=== PATIENT | female | born 1940 | race Caucasian/White ===

== ENCOUNTER 2022-06-11 20:26 | Emergency (ER) | payer MEDICARE, SELFPAY ==
--- NOTE | ~2022-06-11 | CT_ITS ---
EXAMINATION: CT head/brain wo con, CT cervical spine wo con INDICATION INFORMATION: Reason for Exam fall, poor historian COMPARISON: None TECHNIQUE: Separate noncontrast CT examinations of the head and cervical spine were performed. Coronal and sagittal images were created for each examination at the technologist workstation. This CT examination was performed using dose optimization techniques as appropriate, variously including the following: *Automated exposure control *Adjustment of mA and/or kV according to patient size (this includes techniques or standardized protocols for targeted exams where dose is matched to indication/reason for exam; i.e. extremities or head) *Use of iterative reconstruction technique DLP: 1073 mGy-cm FINDINGS: Motion degraded examination, particularly of the cervical spine. Head: No acute osseous or soft tissue abnormality. The mastoid air cells and visualized portions of the paranasal sinuses are well aerated. There is no evidence of acute intracranial hemorrhage or territorial infarction. No abnormal mass effect or midline shift is seen. Kruse to white matter differentiation is well preserved. No extra-axial fluid collections are identified. No hydrocephalus. Proportional prominence of the ventricles and sulcal spaces is consistent with mild volume loss. Patchy periventricular and deep white matter hypoattenuation is consistent with mild small vessel ischemic changes. Cervical spine: There is no evidence of acute cervical spine fracture. Cervical vertebral bodies remain normal in height. Multilevel cervical spondylosis is suboptimally evaluated. No pre- or paravertebral soft tissue abnormality is identified. Age-indeterminate mild to moderate height loss of the T5 vertebral body Pulmonary emphysema.. The thyroid gland is unremarkable. CT/CT cervical spine wo con IMPRESSION: Motion degraded examination, particularly of the cervical spine which is suboptimally evaluated Within the limitations of motion, no acute intracranial abnormality or acute fracture or traumatic malalignment of the cervical spine is identified. Age-indeterminate mild to moderate height loss of the T5 vertebral body
--- NOTE | ~2022-06-11 | CT_ITS ---
EXAMINATION: CT CHEST, ABDOMEN AND PELVIS WITHOUT CONTRAST CLINICAL INFORMATION: Hypoxic with left shoulder pain. Question left hip fracture COMPARISON: None TECHNIQUE: Multidetector volumetric imaging was performed from the thoracic inlet through the pubic symphysis. Sagittal and coronal reformatted images were obtained on the technologist's workstation. Axial MIP volume rendering provided. This CT examination was performed using dose optimization techniques as appropriate, variously including the following: *Automated exposure control *Adjustment of mA and/or kV according to patient size (this includes techniques or standardized protocols for targeted exams where dose is matched to indication/reason for exam; i.e. extremities or head) *Use of iterative reconstruction technique DLP: 592 mGy-cm FINDINGS: CHEST: Lungs: Small sub-6 mm nodular densities in the medial anterior right upper lobe on series 7 image 186 and peripheral left lower lobe image 459. The latter may represent focal area of scarring or atelectasis or possibly an intrapulmonary lymph node given the slightly triangular morphology. Tiny calcified granuloma in the right upper lobe. Moderate centrilobular emphysema. Mild bibasilar atelectasis and small fat-containing right-sided Bochdalek hernia. Mild biapical pleural parenchymal thickening/scarring. Central airways are clear. Minimal diffuse bronchial wall thickening. Mediastinum: No cardiomegaly or pericardial effusion. Three-vessel coronary calcifications. Normal caliber thoracic aorta with moderate vascular calcifications. Nondilated central pulmonary trunk. No mediastinal hematoma. No mediastinal or hilar lymphadenopathy. Pericardium/Pleura: No pleural effusion. No pneumothorax. Chest Wall/Axilla: Unremarkable. ABDOMEN/PELVIS: Liver, Gallbladder, Biliary Tree: The liver is normal in size, shape, and attenuation. No focal hepatic lesion or biliary ductal dilatation is present. Status post cholecystectomy. Surgical clips in the gallbladder fossa. Extra hepatic bile duct measures 1 cm, and upper limits of normal postcholecystectomy. Pancreas: Unremarkable. Spleen: Unremarkable. Adrenal Glands: Unremarkable. Kidneys and Ureters: 2 cm fluid density simple right midpole renal cyst. No other renal lesion. No radiodense renal calculi. No hydronephrosis. No perinephric stranding or collections. Bladder: Unremarkable. Gastrointestinal Tract: Colonic diverticulosis. No evidence of acute diverticulitis. Normal appendix. No ascites or free air. Abdominal Wall: No abdominal wall hernia is demonstrated. There is some herniation of a knuckle of a bowel loop likely small bowel through the right sciatic notch along side just anterior to and displacing the proximal right sciatic nerve on series 8-46. Lymphovascular Structures: Lymph nodes: No lymphadenopathy. Vascular: Approximately 4 cm juxtarenal abdominal aortic aneurysm. Extensive vascular calcifications. Pelvic Viscera: Gynecologic structures grossly unremarkable-limited assessment. OSSEOUS STRUCTURES: Marked osteopenia. Subtle linear lucency through the posterior base of the left greater trochanter extending to the posterior margin of the intertrochanteric ridge on coronal image 13 suspicious for nondisplaced fracture. Moderate bilateral hip joint osteoarthritis. No pelvic fracture seen. Compression deformities of L1, L2, L4, and to a lesser degree L5 with multilevel degenerative disc disease. Compression deformities of T5, T6, T7, T8, T9, T10, T11, T12, chronic in appearance. No acute fracture line. No acute rib fracture. Mildly displaced/impacted humeral neck fracture with lipohemarthrosis at the left shoulder. Anterior inferior subluxation left humeral head relative to the glenoid. No wallace dislocation. CT/CT abdomen pelvis wo con IMPRESSION: 1. Mildly impacted left humeral neck fracture with lipohemarthrosis at the left shoulder and anterior inferior subluxation of the humeral head relative to the glenoid. No wallace dislocation. 2. Findings highly suspicious for a nondisplaced fracture through the base of the left greater trochanter extending toward the posterior intertrochanteric ridge. 3. No airspace consolidation, pleural effusion, or pneumothorax. 4. Moderate centrilobular emphysema. 5. A few small sub-6 mm pulmonary nodules, as above. Consider optional low-dose chest CT follow-up in 12 months time per [employer] society guidelines 2017. 6. No acute intra-abdominal process. 7. 4 cm juxtarenal abdominal aortic aneurysm. 8. Herniation of the short segment of a small bowel loop through the right sciatic notch exerting mild mass effect on the proximal right sciatic nerve. 9. Multiple additional chronic findings, as above.
[2022-06-11 20:34] VITALS: BP 177/87; BP 178/88; PULSE 77; PULSE 84; RESP 20; TEMP 36.9; O2SAT 89; O2SAT 91; BMI 13.4
[2022-06-11 20:50] VITALS: BP 177/87; PULSE 80; RESP 20; TEMP 36.9; O2SAT 90
--- NOTE | 2022-06-11 21:17 | ECG_ITS ---
Test Reason : DIFFICULTY BREATHING Blood Pressure : / mmHG Vent. Rate : 084 BPM Atrial Rate : 084 BPM P-R Int : 136 ms QRS Dur : 064 ms QT Int : 366 ms P-R-T Axes : 076 013 064 degrees QTc Int : 432 ms Normal sinus rhythm Low voltage QRS Septal infarct , age undetermined Abnormal ECG No previous ECGs available Referred By: Danae Link Electronically Signed By:CURTIS ADAMS
--- NOTE | 2022-06-11 21:28 | ED_ITS ---
HPI - Fall General Chief Complaint: Fall Stated Complaint: FALL Time Seen by Provider: 06/11/22 20:58 Source: patient and EMS Mode of arrival: EMS Limitations: no limitations History of Present Illness HPI Narrative: Patient comes to the emergency room after sustaining a fall. Patient states that she does not remember how it happened, believes that she tripped. Per EMS, it seems that she was trying to move around with her walker, tripped over some wires. States that she was on the floor for about 4 hours, trying to get the attention of her neighbors by hitting the floor with her cane. When EMS arrived, patient was found to be hypoxic in the low 80s, with no complaints of shortness of breath. Patient states that she has not been seen by a physician in over 20 years, is unaware of any medical problems, takes no medications, daily smoker. On arrival to the ED, patient was put on 2 L, oxygen saturation 90%, patient mostly complaining of left shoulder pain and left hip pain, no chest pain or shortness of breath. Also, patient states that she has not been immunized for COVID. Related Data Allergies Allergy/AdvReac Type Severity Reaction Status Date / Time No Known Allergies Allergy Verified 06/11/22 21:09 Review of Systems Review of Systems: Constitutional : No Weight loss, No Fever, No Chills, No Night Sweats, No Fatigue, No Malaise ENT/Mouth : No Hearing loss, No Ear Pain, No Nasal Congestion, No Sinus Pain, No Hoarseness, No sore throat, No Rhinorrhea, No Swallowing Difficulty Eyes: No Eye Pain, No Swelling, No Redness, No Foreign Body, No Discharge, No Vision Changes Cardiovascular : No Chest Pain, No SOB, No Dyspnea on Exertion, No Orthopnea, No Edema, No Palpitations Respiratory : No Cough, No Sputum, No Wheezing, No Smoke Exposure, No Dyspnea Gastrointestinal : No Nausea, No Vomiting, No Diarrhea, No Constipation, No abdominal Pain, No Hematochezia, No Melena Genitourinary : no irregular bleeding, No Dysuria, No Urinary Frequency, No Hematuria, No Urinary Incontinence, No Urgency, No Flank Pain, No Urinary Flow Changes, No Hesitancy Musculoskeletal : Complaining of left shoulder pain and left hip pain Skin : No Skin Lesions, No rash Neuro : No Weakness, No Numbness, No Paresthesias, No Loss of Consciousness, No Dizziness, No Headache Psych : No Anxiety/Panic, No Depression, No SI/HI/AH/VH, No Social Issues, Heme/Lymph: No Bruising, No Bleeding,No Lymphadenopathy Endocrine : No Polyuria, No Polydipsia, No Temperature Intolerance [facility] Social History Social History Alcohol intake: never Patient Tobacco Use Status: Current everyday Tobacco user Use of substances other than those prescribed or required for medical reasons: No Advance Directives: No Advance Directives Information Provided: No Physical Exam Vital Signs: Vital Signs: Last Vital Signs Temp 98.4 F 06/11/22 20:50 Pulse 86 06/11/22 23:12 Resp 21 H 06/11/22 23:12 BP 129/81 06/11/22 23:12 Pulse Ox 91 L 06/11/22 23:12 O2 Del Method 06/11/22 23:12 O2 Flow Rate 2 06/11/22 23:12 Oxygen Flow Rate 2 06/11/22 20:34 BMI result Body Mass Index 13.4 Const: Other: Appearance: Alert. Oriented X3. No acute distress. Patient is cachectic Eyes: Pupils equal, round and reactive to light. ENT: Pharynx normal. Neck: Normal inspection. Neck supple. No lymph nodes noted. No crepitus CVS: Normal heart rate and rhythm. Pulses normal. Normal S1 and S2 Respiratory: No respiratory distress. Breath sounds normal. No Wheezing. No rales Abdomen: Soft and nontender. No rigidity. No distention. Skin: Skin warm and dry. Normal skin color. Ecchymosis in right arm Extremities: No lower extremity edema. No patient has significant swelling to the left shoulder, unable to move it due to pain. Patient holding her left hip flexed, unable to move it due to pain. Neuro: Oriented X 3. No motor deficit. No sensory deficit. Moving all extremities. No slurred speech. CN 2 through 12 grossly intact Psych: calm, cooperative, normal affect Course Course Course Narrative: Patient is currently on 2 L of nasal cannula. It is unclear how long patient has been saturating in the low 80s. Patient has not been seen by a medical p ivan in over 20 years. All of patient's labs and imaging are pending. I discussed with the patient that we will admit her. Patient agrees with plan. I discussed with NEAL Noguerause the CT scan findings, patient has a a mildly impacted left humeral neck fracture and also nondisplaced fracture through the base of the left greater trochanter. Recommendations per Orthopedics, no surgery Urinalysis is pending. Patient needs case management and physical therapy evaluation. Also, patient will need respiratory therapy evaluation. At this time, I discussed with our hospitalist that patient is hypoxic, no shortness of breath. Patient has been hypoxic likely for a prolonged period of time. Patient will need oxygen upon discharge. This time, there are no acute findings that need immediate treatment Physician observation started that 23:42 MDM - Fall Lab Data Result diagrams: 06/11/22 22:40 06/11/22 22:26 Labs: Lab Results 06/11/22 06/11/22 06/11/22 Range/Units 22:26 22:40 22:40 WBC 10.6 (4.8-10.8) X10*3/uL RBC 4.32 (4.20-5.50) X10*6/uL Hgb 13.0 (12.0-16.0) g/dl Hct 39.8 (37.0-47.0) % MCV 92.1 (80.0-98.0) fL MCH 30.1 (27.0-33.0) pg MCHC 32.7 (31.0-35.0) g/dl RDW 12.8 (11.0-16.0) % Plt Count 139 L (160-400) X10*3/uL MPV 10.8 (9.4-12.3) fL Immature Gran % (Auto) 0.3 (0.0-0.4) % Neut % (Auto) 87.6 H (45-73) % Lymph % (Auto) 5.2 L (20-40) % [place] % (Auto) 6.2 (2-11) % Eos % (Auto) 0.2 (0-4) % Baso % (Auto) 0.5 (0-2) % Lymph # (Auto) 0.6 L (1.2-4.9) X10*3/uL [place] # (Auto) 0.7 (0.1-1.2) X10*3/uL Eos # (Auto) 0.0 (0.0-0.4) X10*3/uL Baso # (Auto) 0.1 (0.0-0.2) X10*3/uL Abs Immat Gran (auto) 0.03 (0.00-0.03) X10*3/uL Absolute Neuts (auto) 9.3 H (2.0-8.3) x10*3/uL Absolute Nucleated RBC 0.000 (0.0-0.012) X10*3/uL Nucleated RBC % (auto) 0.0 (0.0-0.2) /100WBC PT 12.5 (10.0-13.1) SEC INR 1.1 (0.9-1.1) VBG pH (7.32-7.43) VBG pCO2 mmHg VBG pO2 mmHg VBG HCO3 (22-26) mmol/L VBG O2 Saturation % VBG Base Excess mmol/L Sodium 145 (135-145) mmol/L Potassium 5.0 (3.3-5.1) mmol/L Chloride 105 (96-108) mmol/L Carbon Dioxide 30 H (22-29) mmol/L Anion Gap 15 (12-20) BUN 14 (9-16) mg/dL Creatinine 0.71 (0.5-1.4) mg/dL Estim Creat Clear Calc 37.7 Estimated GFR > 60 Random Glucose 114 (60-115) mg/dL Lactic Acid (0.5-2.0) mmol/L Calcium 9.4 (8.4-10.2) mg/dL Magnesium (1.6-2.6) mg/dL Total Bilirubin 0.5 (0.0-1.0) mg/dL Direct Bilirubin 0.2 (0.0-0.5) mg/dL AST 15 (5-31) U/L ALT 7 (0-31) U/L Alkaline Phosphatase 76 (39-117) U/L Total Creatine Kinase 72 (26-140) U/L Troponin I High Sens (<3.5-17.0) ng/L B-Natriuretic Peptide (<100) pg/mL Total Protein 6.9 (6.5-8.0) g/dL Albumin 4.0 (3.5-5.0) g/dL TSH (0.32-4.0) uIU/mL Ethyl Alcohol mg/dL COVID-19 ([facility]) (Negative) COVID-19 Clin Com 06/11/22 06/11/22 06/11/22 Range/Units 22:40 22:40 22:40 WBC (4.8-10.8) X10*3/uL RBC (4.20-5.50) X10*6/uL Hgb (12.0-16.0) g/dl Hct (37.0-47.0) % MCV (80.0-98.0) fL MCH (27.0-33.0) pg MCHC (31.0-35.0) g/dl RDW (11.0-16.0) % Plt Count (160-400) X10*3/uL MPV (9.4-12.3) fL Immature Gran % (Auto) (0.0-0.4) % Neut % (Auto) (45-73) % Lymph % (Auto) (20-40) % [place] % (Auto) (2-11) % Eos % (Auto) (0-4) % Baso % (Auto) (0-2) % Lymph # (Auto) (1.2-4.9) X10*3/uL [place] # (Auto) (0.1-1.2) X10*3/uL Eos # (Auto) (0.0-0.4) X10*3/uL Baso # (Auto) (0.0-0.2) X10*3/uL Abs Immat Gran (auto) (0.00-0.03) X10*3/uL Absolute Neuts (auto) (2.0-8.3) x10*3/uL Absolute Nucleated RBC (0.0-0.012) X10*3/uL Nucleated RBC % (auto) (0.0-0.2) /100WBC PT (10.0-13.1) SEC INR (0.9-1.1) VBG pH (7.32-7.43) VBG pCO2 mmHg VBG pO2 mmHg VBG HCO3 (22-26) mmol/L VBG O2 Saturation % VBG Base Excess mmol/L Sodium (135-145) mmol/L Potassium (3.3-5.1) mmol/L Chloride (96-108) mmol/L Carbon Dioxide (22-29) mmol/L Anion Gap (12-20) BUN (9-16) mg/dL Creatinine (0.5-1.4) mg/dL Estim Creat Clear Calc Estimated GFR Random Glucose (60-115) mg/dL Lactic Acid 1.8 (0.5-2.0) mmol/L Calcium (8.4-10.2) mg/dL Magnesium (1.6-2.6) mg/dL Total Bilirubin (0.0-1.0) mg/dL Direct Bilirubin (0.0-0.5) mg/dL AST (5-31) U/L ALT (0-31) U/L Alkaline Phosphatase (39-117) U/L Total Creatine Kinase (26-140) U/L Troponin I High Sens 4.9 (<3.5-17.0) ng/L B-Natriuretic Peptide (<100) pg/mL Total Protein (6.5-8.0) g/dL Albumin (3.5-5.0) g/dL TSH (0.32-4.0) uIU/mL Ethyl Alcohol mg/dL COVID-19 ([facility]) Negative (Negative) COVID-19 Clin Com See Note 06/11/22 06/11/22 06/11/22 Range/Units 22:40 22:40 22:40 WBC (4.8-10.8) X10*3/uL RBC (4.20-5.50) X10*6/uL Hgb (12.0-16.0) g/dl Hct (37.0-47.0) % MCV (80.0-98.0) fL MCH (27.0-33.0) pg MCHC (31.0-35.0) g/dl RDW (11.0-16.0) % Plt Count (160-400) X10*3/uL MPV (9.4-12.3) fL Immature Gran % (Auto) (0.0-0.4) % Neut % (Auto) (45-73) % Lymph % (Auto) (20-40) % [place] % (Auto) (2-11) % Eos % (Auto) (0-4) % Baso % (Auto) (0-2) % Lymph # (Auto) (1.2-4.9) X10*3/uL [place] # (Auto) (0.1-1.2) X10*3/uL Eos # (Auto) (0.0-0.4) X10*3/uL Baso # (Auto) (0.0-0.2) X10*3/uL Abs Immat Gran (auto) (0.00-0.03) X10*3/uL Absolute Neuts (auto) (2.0-8.3) x10*3/uL Absolute Nucleated RBC (0.0-0.012) X10*3/uL Nucleated RBC % (auto) (0.0-0.2) /100WBC PT (10.0-13.1) SEC INR (0.9-1.1) VBG pH (7.32-7.43) VBG pCO2 mmHg VBG pO2 mmHg VBG HCO3 (22-26) mmol/L VBG O2 Saturation % VBG Base Excess mmol/L Sodium (135-145) mmol/L Potassium (3.3-5.1) mmol/L Chloride (96-108) mmol/L Carbon Dioxide (22-29) mmol/L Anion Gap (12-20) BUN (9-16) mg/dL Creatinine (0.5-1.4) mg/dL Estim Creat Clear Calc Estimated GFR Random Glucose (60-115) mg/dL Lactic Acid (0.5-2.0) mmol/L Calcium (8.4-10.2) mg/dL Magnesium 1.9 (1.6-2.6) mg/dL Total Bilirubin (0.0-1.0) mg/dL Direct Bilirubin (0.0-0.5) mg/dL AST (5-31) U/L ALT (0-31) U/L Alkaline Phosphatase (39-117) U/L Total Creatine Kinase (26-140) U/L Troponin I High Sens (<3.5-17.0) ng/L B-Natriuretic Peptide 45 (<100) pg/mL Total Protein (6.5-8.0) g/dL Albumin (3.5-5.0) g/dL TSH 1.63 (0.32-4.0) uIU/mL Ethyl Alcohol < 10 mg/dL COVID-19 ([facility]) (Negative) COVID-19 Clin Com 08/24/22 Range/Units 22:48 WBC (4.8-10.8) X10*3/uL RBC (4.20-5.50) X10*6/uL Hgb (12.0-16.0) g/dl Hct (37.0-47.0) % MCV (80.0-98.0) fL MCH (27.0-33.0) pg MCHC (31.0-35.0) g/dl RDW (11.0-16.0) % Plt Count (160-400) X10*3/uL MPV (9.4-12.3) fL Immature Gran % (Auto) (0.0-0.4) % Neut % (Auto) (45-73) % Lymph % (Auto) (20-40) % [place] % (Auto) (2-11) % Eos % (Auto) (0-4) % Baso % (Auto) (0-2) % Lymph # (Auto) (1.2-4.9) X10*3/uL [place] # (Auto) (0.1-1.2) X10*3/uL Eos # (Auto) (0.0-0.4) X10*3/uL Baso # (Auto) (0.0-0.2) X10*3/uL Abs Immat Gran (auto) (0.00-0.03) X10*3/uL Absolute Neuts (auto) (2.0-8.3) x10*3/uL Absolute Nucleated RBC (0.0-0.012) X10*3/uL Nucleated RBC % (auto) (0.0-0.2) /100WBC PT (10.0-13.1) SEC INR (0.9-1.1) VBG pH 7.38 (7.32-7.43) VBG pCO2 51 mmHg VBG pO2 39 mmHg VBG HCO3 30 H (22-26) mmol/L VBG O2 Saturation 65.0 % VBG Base Excess 4.5 mmol/L Sodium (135-145) mmol/L Potassium (3.3-5.1) mmol/L Chloride (96-108) mmol/L Carbon Dioxide (22-29) mmol/L Anion Gap (12-20) BUN (9-16) mg/dL Creatinine (0.5-1.4) mg/dL Estim Creat Clear Calc Estimated GFR Random Glucose (60-115) mg/dL Lactic Acid (0.5-2.0) mmol/L Calcium (8.4-10.2) mg/dL Magnesium (1.6-2.6) mg/dL Total Bilirubin (0.0-1.0) mg/dL Direct Bilirubin (0.0-0.5) mg/dL AST (5-31) U/L ALT (0-31) U/L Alkaline Phosphatase (39-117) U/L Total Creatine Kinase (26-140) U/L Troponin I High Sens (<3.5-17.0) ng/L B-Natriuretic Peptide (<100) pg/mL Total Protein (6.5-8.0) g/dL Albumin (3.5-5.0) g/dL TSH (0.32-4.0) uIU/mL Ethyl Alcohol mg/dL COVID-19 ([facility]) (Negative) COVID-19 Clin Com Imaging Data Head And cervical spine CT: Radiologist's impression: FINDINGS: Motion degraded examination, particularly of the cervical spine. Head: No acute osseous or soft tissue abnormality. The mastoid air cells and visualized portions of the paranasal sinuses are well aerated. There is no evidence of acute intracranial hemorrhage or territorial infarction. No abnormal mass effect or midline shift is seen. Kruse to white matter differentiation is well preserved. No extra-axial fluid collections are identified. No hydrocephalus. Proportional prominence of the ventricles and sulcal spaces is consistent with mild volume loss. Patchy periventricular and deep white matter hypoattenuation is consistent with mild small vessel ischemic changes. Cervical spine: There is no evidence of acute cervical spine fracture. Cervical vertebral bodies remain normal in height.? Multilevel cervical spondylosis is suboptimally evaluated. No pre- or paravertebral soft tissue abnormality is identified. Age-indeterminate mild to moderate height loss of the T5 vertebral body Pulmonary emphysema.. The thyroid gland is unremarkable. CT/CT head/brain wo con IMPRESSION: ? Motion degraded examination, particularly of the cervical spine which is suboptimally evaluated ? Within the limitations of motion, no acute intracranial abnormality or acute fracture or traumatic malalignment of the cervical spine is identified. ? Age-indeterminate mild to moderate height loss of the T5 vertebral body ? Discharge Plan Discharge Clinical Impression: Closed fracture of neck of left humerus, Closed fracture of greater trochanter of left femur Patient Disposition: Still a Patient
[2022-06-11] MEDS: 0.9 % Sodium Chloride 1,000 ML 999 ML IVCONT (21:46)
[2022-06-11 22:00] VITALS: PULSE 91; RESP 18; O2SAT 90
[2022-06-11] MEDS: Acetaminophen 325 MG TABLET 975 MG PO (22:35)
[2022-06-11 22:50] LABS: Basophils Absolute Auto 0.1 X10*3/uL (0.0-0.2); Basophils Percent Auto 0.5 % (0-2); Mean Corpuscular Volume 92.1 fL (80.0-98.0); PLT CLUMP 1; SCAN SMEAR FLAG 1
[2022-06-11 22:51] LABS: Eosinophils Percent Auto 0.2 % (0-4); Hematocrit 39.8 % (37.0-47.0); Imm Gran Abs Auto 0.03 X10*3/uL (0.00-0.03); Imm Gran Pct Auto 0.3 % (0.0-0.4); Lymphocytes Absolute Auto 0.6 X10*3/uL (1.2-4.9); Lymphocytes Percent Auto 5.2 % (20-40); Mean Corpuscular HGB Conc 32.7 g/dl (31.0-35.0); Mean Corpuscular Hemoglobin 30.1 pg (27.0-33.0); Mean Platelet Volume 10.8 fL (9.4-12.3); Monocytes Absolute Auto 0.7 X10*3/uL (0.1-1.2); Monocytes Percent Auto 6.2 % (2-11); Neutrophils Absolute Auto 9.3 x10*3/uL (2.0-8.3); Neutrophils Percent Auto 87.6 % (45-73); Red Blood Count 4.32 X10*6/uL (4.20-5.50); Red Cell Distribution Width 12.8 % (11.0-16.0)
[2022-06-11 22:55] LABS: INTERNATIONAL NORM RATIO 1.1 (0.9-1.1); Prothrombin Time 12.5 SEC (10.0-13.1); Venous Blood Gas Refer to POC result
[2022-06-11 22:55] LABS: VBG Base Excess 4.5 mmol/L; VBG HCO3 30 mmol/L (22-26); VBG pCO2 51 mmHg; VBG pH 7.38 (7.32-7.43); VBG pO2 39 mmHg
[2022-06-11 22:57] LABS: Alanine Aminotransferase 7 U/L (0-31); Alkaline Phosphatase 76 U/L (39-117); Anion Gap 15 (12-20); Aspartate Amino Transferase 15 U/L (5-31); Bilirubin Direct 0.2 mg/dL (0.0-0.5); Bilirubin Total 0.5 mg/dL (0.0-1.0); Blood Urea Nitrogen 14 mg/dL (9-16); Calcium 9.4 mg/dL (8.4-10.2); Carbon Dioxide 30 mmol/L (22-29); Chloride 105 mmol/L (96-108); Creatinine Clr Calc Pharmacy 37.7; Estimated Glomerular Filt Rate > 60; Glucose Random 114 mg/dL (60-115); Sodium 145 mmol/L (135-145); Total Protein 6.9 g/dL (6.5-8.0)
[2022-06-11 23:00] LABS: White Blood Count 10.6 X10*3/uL (4.8-10.8)
[2022-06-11 23:04] LABS: COVID-19 Test Negative (Negative); IDNOW Serial# 08D9AD1C
[2022-06-11 23:09] LABS: MANUAL DIFF FLAG NO; Platelet Count 139 X10*3/uL (160-400)
[2022-06-11 23:12] VITALS: BP 129/81; PULSE 86; RESP 21; O2SAT 91
[2022-06-11 23:13] LABS: Lactic Acid 1.8 mmol/L (0.5-2.0)
[2022-06-11 23:16] LABS: Ethanol < 10 mg/dL; Magnesium 1.9 mg/dL (1.6-2.6)
[2022-06-11 23:23] LABS: B Type Natriuretic Peptide 45 pg/mL (<100); Troponin-I High Sensitivity 4.9 ng/L (<3.5-17.0)
[2022-06-11 23:38] LABS: TSH reflex Free T4 1.63 uIU/mL (0.32-4.0)
--- NOTE | 2022-06-12 05:35 | PC.NURSE ---
PT UNABLE TO ROLL TO SIDES TO USE A BEDPAN. Barb put on PT and explained . Rn made aware
[2022-06-12 07:00] VITALS: BP 151/79; PULSE 79; RESP 15; O2SAT 93
[2022-06-12 07:30] LABS: Glucose, Whole Blood 102 mg/dL (60-115)
[2022-06-12 07:43] VITALS: BP 151/79; PULSE 79; O2SAT 93
--- NOTE | 2022-06-12 08:05 | PC.NURSE ---
Pt is alert and oriented to person and situation. Unable to identify date or place. Resting quietly, reports no pain when resting, left arm, hip, and leg pain with movement. Bilateral radial pulse present, cap refil <2 sec. Breathing is even and unlabored. Respirations 22, o2 95% on 2l nc. Abd is soft and non tender. Purewick in place with 300 cc clear yellow urine in draining container. R ac IV patent, re dressed and secured. No fluids running at this time. Pt is aware of plan of care. will continue to monitor.
--- NOTE | 2022-06-12 10:43 | PC.NURSE ---
Purewick removed. Pt prefers bed pad.
--- NOTE | 2022-06-12 12:17 | MHC.CM.ED ---
Received case management consult overnight. Patient came to ER after a fall. Found have a humerus and hip fracture. Per ortho, non-surgical. Met with patient in regards to discharge planning. Patient lives alone, ambulates with a cane and had no services prior to coming to the hospital. PCP is Greg Soto. Patient states she hasn't seen her PCP in a while . Per PCP's office, last seen in 2020. Patient has not received any Covid vaccines. Patient is not on oxygen at home. Referral broadcasted in [facility]. [facility], [place], [facility], [facility], [facility] and [facility] are able to offer a bed. [facility] is 1st choice. [facility] has been asked to go for insurance auth. HCP completed, signed and witnessed. Original given to patient. Copy placed in chart. Continue to monitor for d/c needs.
[2022-06-12 13:23] VITALS: BP 169/70; PULSE 79; RESP 18; O2SAT 92
--- NOTE | 2022-06-12 18:25 | PHA.MEDREC ---
Pharmacy Consult ? Medication Reconciliation Patient does not take any medications at home.
[2022-06-12 21:23] VITALS: BP 184/89; PULSE 86; RESP 20; TEMP 36.9; O2SAT 95
--- NOTE | 2022-06-12 21:31 | PC.NURSE ---
NEAL De Luna aware of patients BP
[2022-06-12 22:57] VITALS: BP 156/96
[2022-06-13] VITALS: BP 172/85; PULSE 96; RESP 16; TEMP 36.9; O2SAT 95
[2022-06-13 07:55] VITALS: BP 157/93; PULSE 89; RESP 16; O2SAT 94
--- NOTE | 2022-06-13 08:00 | PC.NURSE ---
pt adjusted in bed, boosted up and sat up. brought pt her breakfast tray and she stated she is not hungry and does not want to eat. pt call zelaya placed at side, purewick in place.
--- NOTE | 2022-06-13 11:50 | MHC.CM.PN ---
[facility] HAS OBTAINED INSURANCE AUTH FOR STR STEP DOWN TRANSPORTATION ARRANGED WITH [facility] FOR 1430 HOURS TODAY PT INFORMED
[2022-06-13 12:17] VITALS: BP 161/88; PULSE 99; RESP 16; O2SAT 92
== END 2022-06-13 14:34 | disposition skilled nursing facility (03) ==
PROVIDERS: Emergency Provider Emergency Medicine; PCP Internal Medicine
DX: S42.212A Unspecified displaced fracture of surgical neck of left humerus, initial encounter for closed fracture (principal); S72.112A Displaced fracture of greater trochanter of left femur, initial encounter for closed fracture; R51.9 Headache, unspecified; M54.2 Cervicalgia; M54.6 Pain in thoracic spine; R06.02 Shortness of breath; W01.0XXA Fall on same level from slipping, tripping and stumbling without subsequent striking against object, initial encounter; Y93.9 Activity, unspecified; Y92.9 Unspecified place or not applicable; Y99.9 Unspecified external cause status; Z20.822 Contact with and (suspected) exposure to COVID-19; Z79.899 Other long term (current) drug therapy
CPT/HCPCS: 36415; 70450; 71250; 72125; 74176; 80048; 80076; 82077; 82550; 82803; 82947; 83605; 83735; 83880; 84443; 84484; 85025; 85610; 87040; 87635; 93005; 97162; 99285

== ENCOUNTER 2022-06-26 07:54 | Outpatient (REF) | payer MEDICARE, SELFPAY ==
--- NOTE | ~2022-06-26 | XR_ITS ---
EXAMINATION: XR HIP, LEFT CLINICAL INFORMATION: Pain COMPARISON: None TECHNIQUE: Two views of the left hip and one view of the pelvis. FINDINGS: There is moderate to severe left hip arthritis with joint space narrowing and osteophyte formation. No fracture or dislocation is seen. There is moderate to severe osteoarthritis at the right hip joint. Bones of the pelvis are normal. There are degenerative changes of the lower lumbar spine. There is evidence of atherosclerotic disease. XR/XR hip LT w [id number] IMPRESSION: Moderate to severe arthritis at the hip joints.
== END 2022-06-26 07:55 | disposition home or self-care (01) ==
LOC: HO.HOSX 07:54
PROVIDERS: Visit Provider Physician Assistant
DX: S72.112A Displaced fracture of greater trochanter of left femur, initial encounter for closed fracture (principal); S42.212A Unspecified displaced fracture of surgical neck of left humerus, initial encounter for closed fracture
CPT/HCPCS: 73502; 99212

== ENCOUNTER 2022-08-11 | Outpatient (REF) | payer OTHER, MEDICARE, SELFPAY ==
--- NOTE | ~2022-08-11 | XR_ITS ---
EXAMINATION: XR HUMERUS, LEFT CLINICAL INFORMATION: Pain COMPARISON: None TECHNIQUE: AP and lateral views of the left humerus. FINDINGS: Transverse oriented fracture of the humeral head. No definite dislocation, although evaluation is limited given views. XR/XR humerus LT IMPRESSION: Transverse oriented fracture of the humeral head. No definite dislocation, although evaluation is limited given views. The report will be called to the ordering clinician by a [facility] Special Effects Technician.
--- NOTE | ~2022-08-11 | XR_ITS ---
EXAMINATION: XR HIP, LEFT CLINICAL INFORMATION: Pain COMPARISON: 06/26/2022 TECHNIQUE: Two views of the left hip. FINDINGS: Severe degenerative changes of left hip joint with joint space narrowing and osteophytosis. Pelvic enthesopathy. No acute fracture or dislocation. XR/XR hip LT w PEL1V IMPRESSION: Severe degenerative changes of the left hip joint.
== END 2022-08-21 08:11 | disposition home or self-care (01) ==
LOC: HO.HOSX
PROVIDERS: Visit Provider Physician Assistant
DX: S72.112D Displaced fracture of greater trochanter of left femur, subsequent encounter for closed fracture with routine healing (principal); S42.212D Unspecified displaced fracture of surgical neck of left humerus, subsequent encounter for fracture with routine healing; W18.09XD Striking against other object with subsequent fall, subsequent encounter
CPT/HCPCS: 73060; 73502; 99212

== ENCOUNTER 2022-09-15 | Outpatient (REF) | payer OTHER, MEDICARE, SELFPAY ==
--- NOTE | ~2022-09-15 | XR_ITS ---
EXAMINATION: XR HIP, LEFT CLINICAL INFORMATION: Pain COMPARISON: Previous x-ray most recent July 2022 TECHNIQUE: Two views of the left hip and one view of the pelvis. FINDINGS: Bone alignment is normal. No fracture or dislocation. Bilateral hip arthritis. Bones of the pelvis are normal. Degenerative changes of the lower lumbar spine. Soft tissue arterial calcification. XR/XR hip LT w PEL1V IMPRESSION: Arthritis. No fracture or dislocation.
--- NOTE | ~2022-09-15 | XR_ITS ---
EXAMINATION: XR SHOULDER, LEFT CLINICAL INFORMATION: Fracture COMPARISON: Previous x-ray July 2022 TECHNIQUE: 2 of the left shoulder. FINDINGS: Transverse impacted left humeral neck fracture. Alignment appears unchanged. Normal glenohumeral joint. Arthritis at the acromioclavicular joint. Normal soft tissues. XR/XR shoulder LT min 2V IMPRESSION: No appreciable change in impacted left humeral neck fracture.
== END 2022-09-15 00:01 ==
LOC: HO.HOSX
PROVIDERS: Visit Provider Physician Assistant
DX: S72.112A Displaced fracture of greater trochanter of left femur, initial encounter for closed fracture (principal); S42.212A Unspecified displaced fracture of surgical neck of left humerus, initial encounter for closed fracture
CPT/HCPCS: 73030; 73502; 99212